=== PATIENT | female | born 1960 | race Caucasian/White ===

== ENCOUNTER → 2019-12-24 | Outpatient (CLI) | payer OTHER | END | disposition home or self-care (01) | LOC: CFH 13:00 | PROVIDERS: ATTEND Family Medicine | DX: Z12.31 Encounter for screening mammogram for malignant neoplasm of breast (principal) | CPT/HCPCS: 77063; 77067 ==

== ENCOUNTER → 2020-01-11 | Outpatient (CLI) | payer OTHER | END | disposition home or self-care (01) | LOC: CFH 13:08 | PROVIDERS: ATTEND Family Medicine | DX: N64.89 Other specified disorders of breast (principal) | CPT/HCPCS: 76642; 77065 ==

== ENCOUNTER → 2020-03-31 | Outpatient (CLI) | payer OTHER ==
[~2020-03-31] MED LIST: GLUC-149 PO; MULT-123 PO; [UNRECOGNIZED DRUG - CODE] PO; [UNRECOGNIZED DRUG - OTHER] PO
== END | disposition home or self-care (01) ==
LOC: STAR 09:00
PROVIDERS: ATTEND Orthopaedic Surgery
DX: Z01.812 Encounter for preprocedural laboratory examination (principal); Z20.828 Contact with and (suspected) exposure to other viral communicable diseases; M19.041 Primary osteoarthritis, right hand; R00.1 Bradycardia, unspecified
CPT/HCPCS: 36415; 87635; 93005

== ENCOUNTER 2020-04-04 10:31 | Day surgery (SDC) | payer OTHER ==
[~2020-04-04] VITALS: Ht 157.5 cm; Wt 45.8 kg
[2020-04-04] MEDS ORDERED: LACTATED RINGERS 1,000 ML IV SCH (11:30)
[2020-04-04] MEDS ORDERED: CHLORHEXIDINE 15 ML UDC MM ONE (11:30)
[2020-04-04] MEDS ORDERED: EPINEPHRINE 1 MG/ML, 1ML ONE (12:30)
[2020-04-04] MEDS ORDERED: BUPIVACAINE/PF 0.25% ONE (12:30)
[2020-04-04] MEDS ORDERED: PROPOFOL 50 ML ONE (12:30)
[2020-04-04] MEDS ORDERED: MIDAZOLAM 1 MG/ML, 2ML ONE (12:31)
[2020-04-04] MEDS ORDERED: FENTANYL PF 250 MCG/5ML ONE (12:31)
[2020-04-04] MEDS ORDERED: PROPOFOL 10 MG/ML, 20ML ONE (12:40)
[2020-04-04] MEDS ORDERED: CEFAZOLIN 1,000 MG ONE (12:40)
[2020-04-04] MEDS ORDERED: DEXAMETHASONE 4 MG/ML, 1ML ONE (12:40)
[2020-04-04] MEDS ORDERED: ONDANSETRON 2MG/ML, 2ML ONE (12:40)
[2020-04-04] MEDS ORDERED: HYDROmorphone 1 MG/ML, 1ML INJ IVPush PRN (13:00)
[2020-04-04] MEDS ORDERED: DIAZEPAM 5 MG/ML, 2ML IVPush PRN (13:00)
[2020-04-04] MEDS ORDERED: DIPHENHYDRAMINE 50 MG/ML, 1ML IVPush PRN (13:00)
[2020-04-04] MEDS ORDERED: EPHEDRINE 50 MG/ML, 1ML IM PRN (13:00)
[2020-04-04] MEDS ORDERED: OXYcodone 5 MG/5 ML ORAL.SOL UDC PO PRN (13:00)
[2020-04-04] MEDS ORDERED: ACETAMINOPHEN 325 MG TABLET PO PRN (13:00)
[2020-04-04] MEDS ORDERED: FENTANYL PF 100 MCG/2ML IV PRN (13:00)
[2020-04-04] MEDS ORDERED: ONDANSETRON 2MG/ML, 2ML IVPush PRN (13:00)
[2020-04-04] MEDS ORDERED: EPHEDRINE 50 MG/ML, 1ML IVPush PRN (13:00)
[2020-04-04] MEDS ORDERED: PROMETHAZINE 25 MG/ML, 1ML IVPush PRN (13:00)
[2020-04-04] MEDS ORDERED: MEPERIDINE/PF 25MG/0.5ML IVPush PRN (13:00)
[2020-04-04] MEDS ORDERED: BUPIVACAINE/PF 0.5% INFIL ONE (13:04)
== END 2020-04-04 15:20 | disposition home or self-care (01) ==
LOC: OUT 10:31
PROVIDERS: ATTEND Orthopaedic Surgery
DX: M19.041 Primary osteoarthritis, right hand (principal); M19.042 Primary osteoarthritis, left hand; Z79.899 Other long term (current) drug therapy; Z88.5 Allergy status to narcotic agent; Z82.61 Family history of arthritis; Z82.49 Family history of ischemic heart disease and other diseases of the circulatory system
CPT/HCPCS: 26860; 73140; C1713; J0171; J0690; J1100; J2250; J2405; J2704; J3010; J7120; 76000

== ENCOUNTER → 2020-11-28 | Outpatient (CLI) | payer OTHER ==
[~2020-11-28] MED LIST changes: +Equate PO
[2020-11-28 10:45] LABS: BASOPHILS % (AUTO) 1 % (0-1); EOSINOPHILS % (AUTO) 1 % (1-7); LYMPHOCYTES % (AUTO) 27 % (22-44); MEAN CORPUSCULAR HEMOGLOBIN 29.6 pg (27.0-34.8); MEAN CORPUSCULAR HGB CONC 33.7 g/dL (32.4-35.8); MEAN PLATELET VOLUME 7.9 fL (7.4-10.4); MONOCYTES % (AUTO) 10 % (2-9); NEUTROPHILS % (AUTO) 61 % (42-75); PLATELET COUNT 294 x10^3/uL (130-400); RED BLOOD COUNT 4.42 x10^6/uL (3.82-5.3); RED CELL DISTRIBUTION WIDTH 13.5 % (9.6-15.2)
[2020-11-28 10:53] LABS: ALANINE AMINOTRANSFERASE 38 U/L (12-78); ALBUMIN 3.4 g/dL (3.4-5.0); ANION GAP 6 mmol/L (5-15); CALCIUM 9.6 mg/dL (8.5-10.1); CHLORIDE 106 mmol/L (98-107); CREATININE 0.55 mg/dL (0.55-1.02)
[2020-11-28 10:55] LABS: ALKALINE PHOSPHATASE 90 U/L (45-117); BILIRUBIN,TOTAL 0.2 mg/dL (0.2-1.0); TOTAL PROTEIN 7.2 g/dL (6.4-8.2)
== END | disposition home or self-care (01) ==
LOC: STAR 09:45
PROVIDERS: ATTEND Orthopaedic Surgery
DX: Z01.810 Encounter for preprocedural cardiovascular examination (principal); Z01.818 Encounter for other preprocedural examination; M25.552 Pain in left hip; M13.852 Other specified arthritis, left hip; I25.2 Old myocardial infarction
CPT/HCPCS: 36415; 80053; 85025; 87081; 93005

== ENCOUNTER → 2020-12-04 | Outpatient (CLI) | payer OTHER | END | disposition home or self-care (01) | LOC: STAR 09:57 | PROVIDERS: ATTEND Orthopaedic Surgery | DX: Z20.822 Contact with and (suspected) exposure to COVID-19 (principal) | CPT/HCPCS: U0003; U0005 ==

== ENCOUNTER 2020-12-10 06:35 | Observation (INO) | payer OTHER ==
[~2020-12-10] VITALS: Ht 157.5 cm; Wt 39.1 kg
[~2020-12-10 06:35] MED LIST changes: +EPINEPHRINE 1 MG/ML, 1ML ONE; +KETOROLAC 30 MG/1 ML ONE; +ROPIvacaine/PF 0.2%, 20 ML ONE; +SODIUM CHLORIDE 0.9% 50 ML ONE; +TRANEXAMIC ACID 100 MG/ML, 10ML ONE
[2020-12-10] MEDS ORDERED: EQUATE PAIN RELIEVER PO (07:18)
[2020-12-10] MEDS ORDERED: CHLORHEXIDINE 15 ML UDC ONE (07:22)
[2020-12-10] MEDS ORDERED: LACTATED RINGERS 1,000 ML IV SCH (07:30)
[2020-12-10] MEDS ORDERED: CHLORHEXIDINE 15 ML UDC PO ONE (07:30)
[2020-12-10] MEDS ORDERED: ONDANSETRON 2MG/ML, 2ML ONE (08:28)
[2020-12-10] MEDS ORDERED: CEFAZOLIN 1,000 MG ONE (08:28)
[2020-12-10] MEDS ORDERED: SUCCINYLCHOLINE 20 MG/ML, 10ML ONE (08:28)
[2020-12-10] MEDS ORDERED: DEXAMETHASONE 4 MG/ML, 1ML ONE (08:28)
[2020-12-10] MEDS ORDERED: ROCURONIUM 10 MG/ML,10ML ONE (08:28)
[2020-12-10] MEDS ORDERED: FENTANYL PF 250 MCG/5ML ONE ×2 (09:17→09:33)
[2020-12-10] MEDS ORDERED: PROPOFOL 50 ML ONE (09:51)
[2020-12-10] MEDS ORDERED: MEPERIDINE/PF 25MG/ML,1ML ONE ×2 (10:11→10:55)
[2020-12-10] MEDS ORDERED: FENTANYL PF 100 MCG/2ML ONE (10:11)
[2020-12-10] MEDS: MEPERIDINE/PF 25MG/0.5ML IVPush PRN ×2 (10:15→10:57)
[2020-12-10] MEDS ORDERED: KETOROLAC 30 MG/1 ML ONE (10:20)
[2020-12-10] MEDS ORDERED: OXYcodone 5 MG/5 ML ORAL.SOL UDC ONE (10:20)
[2020-12-10] MEDS ORDERED: ACETAMINOPHEN 650 MG/20.3 ML UDC ONE (10:20)
[2020-12-10] MEDS: KETOROLAC 30 MG/1 ML IV SCH ×2 (10:24→17:24)
[2020-12-10] MEDS ORDERED: HALOPERIDOL 5 MG/ML IV PRN (10:30)
[2020-12-10] MEDS ORDERED: EPHEDRINE 50 MG/ML, 1ML IVPush PRN (10:30)
[2020-12-10] MEDS ORDERED: DIPHENHYDRAMINE 50 MG/ML, 1ML IVPush PRN (10:30)
[2020-12-10] MEDS ORDERED: HYDROmorphone 1 MG/ML, 1ML INJ IVPush PRN ×2 (10:30)
[2020-12-10] MEDS ORDERED: hydrALAzine 20 MG/ML, 1ML IV PRN (10:30)
[2020-12-10] MEDS ORDERED: ONDANSETRON 4 MG TABLET PO PRN (10:30)
[2020-12-10] MEDS ORDERED: HYDROcodone/APAP 5/325 TABLET PO PRN (10:30)
[2020-12-10] MEDS ORDERED: FENTANYL PF 100 MCG/2ML IV PRN (10:30)
[2020-12-10] MEDS ORDERED: ACETAMINOPHEN 325 MG TABLET PO PRN (10:30)
[2020-12-10] MEDS ORDERED: LABETALOL 5MG/ML, 20ML IV PRN (10:30)
[2020-12-10] MEDS ORDERED: DIAZEPAM 5 MG TABLET PO PRN (10:30)
[2020-12-10] MEDS ORDERED: PROMETHAZINE 25 MG/ML, 1ML IM PRN (10:30)
[2020-12-10] MEDS ORDERED: OXYcodone 5 MG/5 ML ORAL.SOL UDC PO PRN (10:30)
[2020-12-10] MEDS ORDERED: ONDANSETRON 2MG/ML, 2ML IVPush PRN ×2 (10:30)
[2020-12-10] MEDS ORDERED: PROMETHAZINE 25 MG/ML, 1ML IVPush PRN (10:30)
[2020-12-10] MEDS ORDERED: METHOCARBAMOL 1,000 MG in DEXTROSE 5% 100 ML IV PRN (10:30)
[2020-12-10] MEDS ORDERED: LORazepam 2 MG/ML, 1ML IVPush PRN (10:30)
[2020-12-10] MEDS ORDERED: TRANEXAMIC ACID 1,000 MG in SODIUM CHLORIDE 0.9% 100 ML IVPB ONE (10:30)
[2020-12-10] MEDS: OXYcodone 5 MG/5 ML ORAL.SOL UDC PO PRN ×2 (10:40→14:47)
[2020-12-10] MEDS: CEFAZOLIN PMX 1GM/50ML 50 ML IVPB SCH (17:24)
[2020-12-10 18:41] VITALS: BP 112/69
[2020-12-10] MEDS: DOCUSATE 100 MG CAPSULE PO SCH (20:21)
[2020-12-10] MEDS: ACETAMINOPHEN 325 MG TABLET PO PRN (21:09)
[2020-12-11 00:38] VITALS: BP 105/58
[2020-12-11] MEDS: KETOROLAC 30 MG/1 ML IV SCH (01:54)
[2020-12-11] MEDS: CEFAZOLIN PMX 1GM/50ML 50 ML IVPB SCH (01:54)
[2020-12-11 03:43] VITALS: BP 108/66
[2020-12-11] MEDS: ACETAMINOPHEN 325 MG TABLET PO PRN ×2 (05:19→11:30)
[2020-12-11] MEDS ORDERED: ASPIRIN 81 MG TABLET EC PO SCH ×2 (06:00→18:00)
[2020-12-11] MEDS ORDERED: DEXAMETHASONE 4 MG/ML, 1ML IVPush ONE (06:00)
[2020-12-11 07:38] VITALS: BP 106/63
[2020-12-11] MEDS: DOCUSATE 100 MG CAPSULE PO SCH (09:33)
== END 2020-12-11 13:04 | disposition home or self-care (01) ==
LOC: OUT 06:35 → ORIP 10:07 → 4NE 11:45
PROVIDERS: ADMIT Orthopaedic Surgery; ATTEND Orthopaedic Surgery
DX: M16.12 Unilateral primary osteoarthritis, left hip (principal); Z96.642 Presence of left artificial hip joint; Z79.899 Other long term (current) drug therapy
CPT/HCPCS: 27130; 36415; 72170; 86850; 86900; 96365; 96366; 96375; 96376; 97110; 97116; 97161; 97530; C1713; C1776; G0378; J0171; J0330; J0690; J1100; J1885; J2175; J2405; J2704; J2795; J3010; J7120; Q0162